=== PATIENT | female | born 1930 | race African-American/Black ===

== ENCOUNTER → 2016-08-08 | Outpatient (CLI) | payer BC | LOC: RAD 11:30 | PROVIDERS: ATTEND Specialist | DX: M54.16 Radiculopathy, lumbar region (principal) | CPT/HCPCS: 72114 ==

== ENCOUNTER → 2018-01-02 | Outpatient (CLI) | payer BC, MEDICARE ==
--- NOTE | 2018-01-02 12:49 | RADIOLOGY REPORT (SQ) ---
EXAM DESCRIPTION: MRI RT LOWER JOINT WITHOUT COMPLETED DATE/TIME: 01/02/2018 11:11 am REASON FOR STUDY: PAIN IN RIGHT HIP (M25.551) M25.551 PAIN IN RIGHT HIP COMPARISON: None. TECHNIQUE: Righthip images acquired and stored on PACS. Multiplanar images to include fat sensitive sequences as T1, fluid sensitive sequences as T2/STIR and gradient echo sequences. Large FOV fat and fluid sensitive sequences include pelvis and opposite hip. LIMITATIONS: Artifact right hip from lag screws FINDINGS: BONE CORTEX AND MARROW: No generalized marrow replacement. No occult fracture. No worriso me bone lesions. RIGHT HIP: FEMORAL HEAD: Not well seen due to right hip lag screws casting artifact. The lag screws talus scope beyond the lateral bony cortex of the greater trochanter by at least 1 cm, with a surrounding 5 cm c raniocaudad by 2 cm AP by 2 cm transverse fluid collection. ACETABULUM: No gross subchondral cysts. LEFT HIP: Limited evaluation. No worrisome bone lesions. No significant effusion. PELVIS, LOWER LUMBAR SPINE, SACROILIAC JOINTS: PELVIS : No insufficiency/stress fractures. No significant degenerative changes. Sacroiliac joints normal. L SPINE: Degenerative disc changes at L3-4, L4-5, L5-S1 MUSCLES AND SOFT TISSUES: Adductors and piriformis normal. Abductors and greater trochanteric bursa n ormal without edema or fluid. Iliopsoas bursa without fluid. Hamstring attachments without edema or t ear. PELVIC SOFT TISSUES: No masses or adenopathy. OTHER: No other significant finding. IMPRESSION: Lag screws right femoral neck and head causing local metallic artifact. The screws prot rude laterally beyond the lateral bony cortex of the greater trochanter, surrounded by a 5 x 2 x 2 cm fluid collection. TECHNICAL DOCUMENTATION: JOB ID: [id number] [employer]- All Rights Reserved Reading location - IP/workstation name: [email or web address]
== END ==
LOC: RAD 09:59
PROVIDERS: ATTEND Physician Assistant
DX: M25.551 Pain in right hip (principal)